=== PATIENT | female | born 1955 | race Caucasian/White ===

== ENCOUNTER 2017-08-28 17:29 | Inpatient (IN) | payer BC ==
[~2017-08-28] VITALS: Ht 162.6 cm; Wt 80.1 kg
[~2017-08-28 17:29] MED LIST: SYNTHROID125 MCG PO
[2017-08-28 18:42] LABS: BASOPHIL (%) 0.4 % (0-1); EOSINOPHIL (%) 2.3 % (0-5); EOSINOPHIL COUNT 0.2 K/uL (0-0.3); HEMATOCRIT 39.6 % (36.0-46.0); HEMOGLOBIN 13.7 G/DL (11.9-15.5); IMMATURE GRANULOCYTE (%) 0.4 % (0.0-0.7); LYMPHOCYTE (%) 17.9 % (15-42); LYMPHOCYTE COUNT 1.3 K/uL (1.0-2.8); MCH 31.1 PG (29.0-34.0); MCHC 34.6 G/DL (30.0-36.0); MCV 89.8 FL (83-99); MONOCYTE (%) 6.8 % (3-12); MONOCYTE COUNT 0.5 K/uL (0-0.8); NEUTROPHIL (%) 72.2 % (45-76); NEUTROPHIL COUNT 5.1 K/uL (1.8-6.4); PLATELET COUNT 181 K/uL (156-360); RBC DIS.WIDTH-CV 13.4 % (11.8-14.6); RBC DIS.WIDTH-SD 44.1 % (39-53); RED BLOOD COUNT 4.41 M/uL (3.80-5.20); WHITE BLOOD COUNT 7.1 K/uL (4.1-10.2)
[2017-08-28 18:54] LABS: ALBUMIN 4.3 g/dL (3.2-4.8); CHLORIDE 109 mEq/L (99-109); POTASSIUM 3.4 mEq/L (3.7-5.4); SODIUM 142 mEq/L (136-147)
[2017-08-28 18:56] LABS: GLUCOSE 125 mg/dL (70-99); TOTAL PROTEIN 7.2 g/dL (6.4-8.3)
[2017-08-28 18:58] LABS: TOTAL BILIRUBIN 0.6 mg/dL (0.0-1.0)
[2017-08-28 19:00] LABS: ALKALINE PHOSPHATASE 111 IU/L (3-129); CREATININE 0.9 mg/dL (0.6-1.3); GFR ESTIMATE (CALCULATED) > 59 mL/min/
[2017-08-28 19:01] LABS: UREA NITROGEN (BUN) 12 mg/dL (9-23)
[2017-08-28 19:02] LABS: AST (GOT) 24 IU/L (2-34)
[2017-08-28 19:03] LABS: ALT (GPT) 36 IU/L (3-49); LIPASE 131 U/L (1.0-51.0)
[2017-08-28 19:25] LABS: APPEARANCE CLEAR ((CLEAR)); BILIRUBIN NEGATIVE; BLOOD NEGATIVE; COLOR STRAW ((YELLOW)); GLUCOSE (STRIP) NEGATIVE; KETONES NEGATIVE; LEUKOCYTES TRACE; NITRITE NEGATIVE; PROTEIN (STRIP) NEGATIVE; SPECIFIC GRAVITY 1.005 (1.000-1.030); UROBILINOGEN 0.2 MG/DL (0.2-1.0)
[2017-08-28 19:33] LABS: BACTERIA NONE SEEN /HPF; EPITHELIAL CELLS NONE SEEN /HPF; MUCUS NONE SEEN /LPF; RED BLOOD CELLS 0-5 /HPF (0-5); UCUL ADDED? NO; WHITE BLOOD CELLS 0-5 /HPF (0-5)
[2017-08-28] MEDS ORDERED: FLAGYL500 MG PO (20:36)
[2017-08-28] MEDS ORDERED: CIPRO500 MG PO (20:36)
[2017-08-28] MEDS ORDERED: CLARINEX5 MG PO (20:36)
[2017-08-28] MEDS ORDERED: SIMVASTATIN20 MG PO (20:37)
[2017-08-28] MEDS ORDERED: XANAX0.5 MG PO (20:37)
[2017-08-28] MEDS ORDERED: B-COMPLEX-VITA1 EACH PO (20:37)
[2017-08-28] MEDS ORDERED: DAILY VALUE1 EACH PO (20:37)
[2017-08-28] MEDS ORDERED: ADVAIR 100/501 DISK IH (20:38)
[2017-08-28] MEDS ORDERED: CALCIUM 500 +1 EACH PO (20:38)
[2017-08-28 23:02] VITALS: BP 130/73
[2017-08-29 04:01] VITALS: BP 124/68
[2017-08-29 05:26] LABS: BASOPHIL (%) 0.6 % (0-1); EOSINOPHIL (%) 3.1 % (0-5); EOSINOPHIL COUNT 0.2 K/uL (0-0.3); HEMATOCRIT 36.2 % (36.0-46.0); IMMATURE GRANULOCYTE (%) 0.4 % (0.0-0.7); LYMPHOCYTE (%) 22.2 % (15-42); LYMPHOCYTE COUNT 1.1 K/uL (1.0-2.8); MCH 30.3 PG (29.0-34.0); MCHC 33.1 G/DL (30.0-36.0); MCV 91.4 FL (83-99); MONOCYTE (%) 8.2 % (3-12); MONOCYTE COUNT 0.4 K/uL (0-0.8); NEUTROPHIL (%) 65.5 % (45-76); NEUTROPHIL COUNT 3.4 K/uL (1.8-6.4); PLATELET COUNT 149 K/uL (156-360); RBC DIS.WIDTH-CV 13.3 % (11.8-14.6); RBC DIS.WIDTH-SD 45.4 % (39-53); RED BLOOD COUNT 3.96 M/uL (3.80-5.20); WHITE BLOOD COUNT 5.1 K/uL (4.1-10.2)
[2017-08-29 05:47] LABS: CHLORIDE 112 MEQ/L (99-109); CREATININE 0.6 MG/DL (0.6-1.3); GFR ESTIMATE (CALCULATED) > 59 mL/min/; GLUCOSE 94 mg/dL (70-99); SODIUM 143 MEQ/L (136-147); UREA NITROGEN (BUN) 8 mg/dL (9-23)
[2017-08-29 07:57] VITALS: BP 142/76
[2017-08-29 10:58] VITALS: BP 160/80
[2017-08-29] MEDS ORDERED: AMOX TR-K CLV1 EAC4 PO (14:20)
== END 2017-08-29 14:40 | disposition home or self-care (01) | DRG 392 ==
LOC: EME 17:29 → 2EAST 19:50 → EDOF 19:50 → ENRESERV 20:34 → CANRESERV 20:34 → ENRESERV 20:37 → 2EAST 22:41
PROVIDERS: Emergency Medicine; Family Medicine
DX: K57.20 Diverticulitis of large intestine with perforation and abscess without bleeding (principal); J45.909 Unspecified asthma, uncomplicated; F41.9 Anxiety disorder, unspecified; E03.9 Hypothyroidism, unspecified; E66.9 Obesity, unspecified; Z68.30 Body mass index [BMI] 30.0-30.9, adult; Z90.49 Acquired absence of other specified parts of digestive tract; E78.5 Hyperlipidemia, unspecified
CPT/HCPCS: 36415; 74177; 80048; 80053; 81003; 83605; 83690; 85025; 87040; 99281; 99285; J0744; J2543; J7030; S0030

== ENCOUNTER 2017-09-30 05:08 | Emergency (ER) | payer BC ==
[~2017-09-30] VITALS: Ht 162.6 cm; Wt 79.4 kg
[~2017-09-30 05:08] MED LIST changes: +ADVAIR 100/501 DISK IH; +AMOX TR-K CLV1 EAC4 PO; +B-COMPLEX-VITA1 EACH PO; +CALCIUM 500 +1 EACH PO; +CIPRO500 MG PO; +CLARINEX5 MG PO; +DAILY VALUE1 EACH PO; +FLAGYL500 MG PO; +SIMVASTATIN20 MG PO; +XANAX0.5 MG PO
[2017-09-30 06:21] LABS: HEMATOCRIT 37.8 % (36.0-46.0); HEMOGLOBIN 13.3 G/DL (11.9-15.5); MCH 31.1 PG (29.0-34.0); MCHC 35.2 G/DL (30.0-36.0); MCV 88.5 FL (83-99); PLATELET COUNT 130 K/uL (156-360); RBC DIS.WIDTH-CV 13.6 % (11.8-14.6); RBC DIS.WIDTH-SD 44.2 % (39-53); RED BLOOD COUNT 4.27 M/uL (3.80-5.20); WHITE BLOOD COUNT 6.7 K/uL (4.1-10.2)
[2017-09-30 06:31] LABS: ALBUMIN 4.1 g/dL (3.2-4.8); CHLORIDE 107 mEq/L (99-109); POTASSIUM 3.4 mEq/L (3.7-5.4); SODIUM 142 mEq/L (136-147)
[2017-09-30 06:33] LABS: GLUCOSE 126 mg/dL (70-99); TOTAL PROTEIN 6.4 g/dL (6.4-8.3)
[2017-09-30 06:37] LABS: ALKALINE PHOSPHATASE 78 IU/L (3-129); CREATININE 0.8 mg/dL (0.6-1.3); GFR ESTIMATE (CALCULATED) > 59 mL/min/
[2017-09-30 06:38] LABS: UREA NITROGEN (BUN) 8 mg/dL (9-23)
[2017-09-30 06:39] LABS: AST (GOT) 33 IU/L (2-34)
[2017-09-30 06:40] LABS: ALT (GPT) 34 IU/L (3-49)
[2017-09-30 06:51] LABS: APPEARANCE CLEAR ((CLEAR)); BILIRUBIN NEGATIVE; BLOOD NEGATIVE; COLOR YELLOW ((YELLOW)); GLUCOSE (STRIP) NEGATIVE; KETONES NEGATIVE; LEUKOCYTES NEGATIVE; NITRITE NEGATIVE; PROTEIN (STRIP) NEGATIVE; SPECIFIC GRAVITY 1.005 (1.000-1.030); UCUL ADDED? NO; UROBILINOGEN 0.2 MG/DL (0.2-1.0)
[2017-09-30] MEDS ORDERED: AUGMENTIN875 MG PO (08:08)
[2017-09-30 08:47] VITALS: BP 132/75
== END 2017-09-30 08:53 | disposition home or self-care (01) ==
LOC: EME → EDBD 05:08 → EME 08:53
PROVIDERS: Emergency Medicine
DX: K57.92 Diverticulitis of intestine, part unspecified, without perforation or abscess without bleeding (principal); J45.909 Unspecified asthma, uncomplicated; E03.9 Hypothyroidism, unspecified; Z90.49 Acquired absence of other specified parts of digestive tract; Z86.718 Personal history of other venous thrombosis and embolism; Z90.710 Acquired absence of both cervix and uterus
CPT/HCPCS: 80053; 81003; 85027; 99281; 99284; J0295; J2270; J7030; J7050